=== PATIENT | male | born 1930 | race Caucasian/White ===

== ENCOUNTER 2018-09-23 19:49 | Inpatient (IN) | payer OTHER ==
--- NOTE | 2018-09-23 20:53 | EDPHY ---
H & P Stated Complaint: from [facility] fall, c/o L hip/LLE pain Time Seen by Provider: 09/23/18 20:49 HPI/ROS: CHIEF COMPLAINT: Left hip pain HISTORY OF PRESENT ILLNESS: The patient presents to the ED with complaints of acute left hip pain after a mechanical fall. Patient did not strike his head or lose consciousness. The patient denies any chest pain, back pain or difficulty breathing. The patient is not anticoagulated. The patient's past medical history is significant for paroxysmal atrial fibrillation and stage III renal disease. The patient was brought in by paramedics. The patient complains of acute moderate to severe pain in his left hip which is worsened with attempted movement. The patient is relatively comfortable while at rest. REVIEW OF SYSTEMS: A comprehensive 10 point review of systems is otherwise negative aside from elements mentioned in the history of present illness. Source: Patient, EMS - Personal History Current Tetanus/Diphtheria Vaccine: Yes - Medical/Surgical History Other PMH: Past medical history: Present all atrial fibrillation, chronic renal insufficiency, hypothyroidism, mild dementia, gastroesophageal reflux disease, pacemaker - Family History Significant Family History: No pertinent family hx - Social History Smoking Status: Never smoked Alcohol Use: None - Physical Exam Exam: General Appearance: Elderly male, no acute distress Head: Atraumatic Eyes: Pupils equal, round, reactive ENT, Mouth: No hemotympanum, no oral trauma Neck: Nontender, trachea midline Respiratory: No chest wall tender, no subcutaneous air, lungs clear bilaterally Cardiovascular: Regular rate and rhythm Abdomen: Abdomen is soft and nontender, pelvis stable Skin: No lacerations, No abrasion Back: No midline T/L/S pain Extremities: Tenderness to palpation, shortening and internal rotation noted involving the right hip Neurological: Alert and oriented x1, likely baseline, 5/5 strength noted all 4 extremities Constitutional: Initial Vital Signs Temperature (C) 36.8 C 09/23/18 19:54 Heart Rate 63 09/23/18 19:54 Respiratory Rate 20 09/23/18 19:54 Blood Pressure 100/79 09/23/18 19:54 O2 Sat (%) 93 09/23/18 19:54 O2 Delivery Mode Room Air Allergies/Adverse Reactions: memantine HCl [From Namenda] Allergy (Severe, Verified 03/22/13 14:54) Rash escitalopram oxalate [From Lexapro] Allergy (Intermediate, Verified 03/22/13 14: 54) Diarrhea galantamine HBr [From Razadyne] Allergy (Intermediate, Verified 03/22/13 14:54) Rash lansoprazole [From Prevacid] Allergy (Intermediate, Verified 03/22/13 14:54) Rash HAYFEVER Allergy (Intermediate, Uncoded 03/22/13 14:54) Other-Enter Comments Home Medications: Medication Instructions Recorded Aspirin EC [Aspirin EC 81 mg (*)] 81 mg PO DAILY 09/23/18 Calcium Carbonate/Vitamin D3 1 each PO DAILY 09/23/18 [Calcium 600 + D3 Softgel] Cholecalciferol Vit D3 [Vitamin D3 2,000 units PO DAILY 09/23/18 (*)] Cyanocobalamin (Vitamin B-12) 1,000 mcg PO DAILY 09/23/18 [Vitamin B-12] Levothyroxine [Synthroid 50 mcg 50 mcg PO DAILY06 09/23/18 (*)] Melatonin [Melatonin 5 mg] 5 mg PO HS 09/23/18 Polyethylene Glycol 3350 [Miralax 17 gm PO Q72H 09/23/18 17 gm (*)] Ranitidine HCl 300 mg PO DAILY 09/23/18 Saccharomyces Boulardii [FLORASTOR] 250 mg PO BID 09/23/18 Tamsulosin HCl 0.4 mg PO HS 09/23/18 Triamcinolone 0.5% [Triamcinolone 1 kourtney TP BID PRN 09/23/18 0.5% Cream (*)] Medical Decision Making - Diagnostics EKG Interpretation: EKG: Complete interpretation has been separately recorded in the [employer] [address] archive. Summary impression: Atrial fibrillation, rate 82 Imaging Results: Imaging Impressions Hip X-Ray 09/23/18 20:02 Impression: Acute minimally impacted and angulated left femoral neck fracture. ED Course/Re-evaluation: The patient presents to the ED with complaints of acute left hip pain. The patient's x-ray demonstrates an impacted left femoral neck fracture. The patient is relatively pain-free while at rest. He is neurovascularly intact. While the patient has a history of dementia he has no clinical evidence of an obvious additional injury. Patient had an IV established. He received a L of normal saline. Preoperative labs and EKG have been ordered. I discussed the case with Dr. Alvarado from Orthopedic surgery. The patient will be admitted to the hospital this evening. Consultation was made with Dr. Seth from the hospitalist service. Patient's EKG demonstrates a stable rate controlled AFib without ischemic changes. Differential Diagnosis: Differential diagnosis considered includes anemia, pelvic fracture, hip dislocation, hip fracture, arrhythmia Departure - Departure Disposition: [facility] Inpatient Acute Clinical Impression: Femoral neck fracture, Atrial fibrillation Condition: Fair
[2018-09-23 21:12] LABS: PLATELET COUNT 207 10^3/uL (150-400)
[2018-09-23 21:21] LABS: INR 1.07 (0.83-1.16); PROTIME(PATIENT) 13.5 SEC (12.0-15.0)
--- NOTE | 2018-09-23 21:37 | CPEKG ---
Test Reason : OPEN Blood Pressure : / mmHG Vent. Rate : 082 BPM Atrial Rate : 086 BPM P-R Int : 162 ms QRS Dur : 102 ms QT Int : 369 ms P-R-T Axes : 000 -32 -65 degrees QTc Int : 431 ms Atrial fibrillation Left axis deviation Confirmed by James Kirkland ([id number]) on 09/23/2018 9:36:44 PM Referred By: Rafy Seth Confirmed By:James Kirkland
[2018-09-23] MEDS ORDERED: oxyCODONE IR 5 MG TAB PO PRN (22:14)
[2018-09-23] MEDS ORDERED: ONDANSETRON 4 MG/2 ML VIAL IVP PRN (22:14)
[2018-09-23] MEDS ORDERED: ONDANSETRON DISINTEGRATING 4 MG TAB PO PRN (22:14)
--- NOTE | 2018-09-23 23:38 | PDGENHP ---
History and Physical - Chief Complaint Fall - History of Present Illness 88 yo M w/ hx of AF, CAD, and SSS s/p PPM presents after a fall. The patient fell on his left side. He was brought to the ED after complaining of L hip pain. Per report, there was no LOC or head trauma. He is not anticoagulated for hx of AF. In the ED he was diagnosed with an acute L sided hip fracture. He is being admitted for management of this. During my evaluation the patient is only oriented to self. He is alert but unable to provide much in terms of additional history. His outpatient encounter with Dr. Ortez does mention known "cognitive decline" but I am uncertain of his mental baseline. Case discussed with Dr. Seth; records reviewed and summarized above. History Information - Allergies/Home Medication List Allergies/Adverse Reactions: memantine HCl [From Namenda] Allergy (Severe, Verified 03/22/13 14:54) Rash escitalopram oxalate [From Lexapro] Allergy (Intermediate, Verified 03/22/13 14: 54) Diarrhea galantamine HBr [From Razadyne] Allergy (Intermediate, Verified 03/22/13 14:54) Rash lansoprazole [From Prevacid] Allergy (Intermediate, Verified 03/22/13 14:54) Rash HAYFEVER Allergy (Intermediate, Uncoded 03/22/13 14:54) Other-Enter Comments Home Medications: Aspirin EC [Aspirin EC 81 mg (*)] 81 mg PO DAILY 09/23/18 [Last Taken 09/23/18] Calcium Carbonate/Vitamin D3 [Calcium 600 + D3 Softgel] 1 each PO DAILY [Last Taken 09/23/18] Cholecalciferol Vit D3 [Vitamin D3 (*)] 2,000 units PO DAILY 09/23/18 [Last Taken 09/23/18] Cyanocobalamin (Vitamin B-12) [Vitamin B-12] 1,000 mcg PO DAILY 09/23/18 [Last Taken 09/23/18] Levothyroxine [Synthroid 50 mcg (*)] 50 mcg PO DAILY06 09/23/18 [Last Taken 02/04] Melatonin [Melatonin 5 mg] 5 mg PO HS 09/23/18 [Last Taken 09/22/18] Polyethylene Glycol 3350 [Miralax 17 gm (*)] 17 gm PO Q72H 09/23/18 [Last Taken 09/21/18] Ranitidine HCl 300 mg PO DAILY 09/23/18 [Last Taken 09/23/18] Saccharomyces Boulardii [FLORASTOR] 250 mg PO BID 09/23/18 [Last Taken 09/23/18] Tamsulosin HCl 0.4 mg PO HS 09/23/18 [Last Taken 09/22/18] Triamcinolone 0.5% [Triamcinolone 0.5% Cream (*)] 1 kourtney TP BID PRN 09/23/18 [ Last Taken 09/22/18] I have personally reviewed and updated: family history, medical history - Past Medical History atrial fibrillation, coronary artery disease - Surgical History Reports: pacemaker/AICD - Family History Additional family history: Asked, unable to recall - Social History Smoking Status: Never smoked Alcohol Use: None Review of Systems Review of Systems: Unable to obtain due to confusion Physical Exam Physical Exam: Temp Pulse Resp BP Pulse Ox 36.7 C 80 14 170/81 H 92 09/23/18 22:42 09/23/18 22:42 09/23/18 22:42 09/23/18 22:42 09/23/18 22:42 Constitutional: chronically ill appearing, uncomfortable Eyes: PERRL, EOMI Ears, Nose, Mouth, Throat: moist mucous membranes, no oral mucosal ulcers Cardiovascular: systolic murmur, irregularly irregular Respiratory: no respiratory distress, clear to auscultation Gastrointestinal: normoactive bowel sounds, soft, non-tender abdomen Skin: warm, normal color Musculoskeletal: pain with ROM, muscular tenderness Neurologic: other (A&Ox1), No facial droop Psychiatric: interacting appropriately, not anxious Lab Data & Imaging Review 09/23/18 20:55 09/23/18 20:55 WBC 11.08 10^3/uL (3.80-9.50) H 09/23/18 20:55 RBC 4.07 10^6/uL (4.40-6.38) L 09/23/18 20:55 Hgb 13.4 g/dL (13.7-17.5) L 09/23/18 20:55 Hct 40.7 % (40.0-51.0) 09/23/18 20:55 MCV 100.0 fL (81.5-99.8) H 09/23/18 20:55 MCH 32.9 pg (27.9-34.1) 09/23/18 20:55 MCHC 32.9 g/dL (32.4-36.7) 09/23/18 20:55 RDW 12.6 % (11.5-15.2) 09/23/18 20:55 Plt Count 207 10^3/uL (150-400) 09/23/18 20:55 MPV 11.3 fL (8.7-11.7) 09/23/18 20:55 Neut % (Auto) 83.6 % (39.3-74.2) H 09/23/18 20:55 Lymph % (Auto) 7.4 % (15.0-45.0) L 09/23/18 20:55 [place] % (Auto) 7.2 % (4.5-13.0) 09/23/18 20:55 Eos % (Auto) 1.2 % (0.6-7.6) 09/23/18 20: Baso % (Auto) 0.2 % (0.3-1.7) L 09/23/18 20:55 Nucleat RBC Rel Count 0.0 % (0.0-0.2) 09/23/18 20:55 Absolute Neuts (auto) 9.27 10^3/uL (1.70-6.50) H 09/23/18 20:55 Absolute Lymphs (auto) 0.82 10^3/uL (1.00-3.00) L 09/23/18 20:55 Absolute Monos (auto) 0.80 10^3/uL (0.30-0.80) 09/23/18 20:55 Absolute Eos (auto) 0.13 10^3/uL (0.03-0.40) 09/23/18 20:55 Absolute Basos (auto) 0.02 10^3/uL (0.02-0.10) 09/23/18 20:55 Absolute Nucleated RBC 0.00 10^3/uL (0-0.01) 09/23/18 20:55 Immature Gran % 0.4 % (0.0-1.1) 09/23/18 20:55 Immature Gran # 0.04 10^3/uL (0.00-0.10) 09/23/18 20:55 PT 13.5 SEC (12.0-15.0) 09/23/18 20:55 INR 1.07 (0.83-1.16) 09/23/18 20:55 Sodium 137 mEq/L (135-145) 09/23/18 20:55 Potassium 4.2 mEq/L (3.5-5.2) 09/23/18 20:55 Chloride 106 mEq/L (97-110) 09/23/18 20:55 Carbon Dioxide 23 mEq/l (22-31) 09/23/18 20:55 Anion Gap 8 mEq/L (6-14) 09/23/18 20:55 BUN 31 mg/dL (7-23) H 09/23/18 20:55 Creatinine 0.9 mg/dL (0.7-1.3) 09/23/18 20:55 Estimated GFR > 60 09/23/18 20:55 Glucose 99 mg/dL (70-100) 09/23/18 20:55 Calcium 9.4 mg/dL (8.5-10.4) 09/23/18 20:55 Imaging Review: Imaging Impressions Hip X-Ray 09/23/18 20:02 Impression: Acute minimally impacted and angulated left femoral neck fracture. Visualized and Interpreted EKG results: Yes EKG Interpretation: Positive for: other (Atrial fibrillation) Assessment & Plan Assessment: 88 yo M w/ AF, CAD, and SSS s/p PPM presents with L hip fracture. Plan: 1. Acute L hip fracture - XR (personally reviewed/interpreted) demonstrates minimally impacted and angulated left femoral neck fracture. - Orthopedic surgery (Dr. Alvarado) consulted, will evaluate in the morning - Maintain NPO @ MN - Attempt to limit centrally acting medications noting high delirium risk - This qualifies as a fragility fracture, will need osteoporosis evaluation/ treatment as outpatient 2. Acute v. chronic encephalopathy - I suspect patient has some degree of baseline dementia but I am unaware of his baseline. He is currently A&Ox1 on my evaluation. - Limit centrally acting meds as able - Bed alarm - Delirium precautions 3. AF - Not on anticoagulation or rate control medications for this. - Monitor on telemetry 4. SSS - s/p pacemaker placement, which is seen intermittently on his monitoring and evaluation advisor. 5. CAD - On ASA, no acute chest pain. Diet - NPO @ MN Code - Full, would address this with family/MDPOA as able. Patient is unable to engage in meaningful conversation about this topic tonight. Ppx - SCDs Dispo - Admit under inpatient status
[2018-09-24 05:21] LABS: PLATELET COUNT 208 10^3/uL (150-400)
[2018-09-24] MEDS: ACETAMINOPHEN 500 MG TAB PO SCH ×3 (05:39→22:11)
--- NOTE | 2018-09-24 07:42 | HOSPPROG ---
Hospitalist Progress Note Assessment/Plan: 88 yo M w/ AF, CAD, and SSS s/p PPM presents with L hip fracture. First encounter, chart reviewed. *acute left hip fx, likely osteoporotic -ortho to evaluated, likely to go to OR today *pain due to the above -will order IV pain medications while NPO -avoid narcotics when possible *acute metabolic encephalopathy -due to the above, has underlying dementia *leukocytosis -stress induced *Afib -rate controlled *CAD -asa (on hold for surgery) *hx of SSS w pacer placement *dvt prophylaxis: pumps in place, Lovenox after surgery Subjective: Aleks says 'yes' when asked if in pain. Objective: Vital Signs Temp Pulse Resp BP Pulse Ox 36.8 C 78 18 133/71 H 93 09/24/18 03:10 09/24/18 03:10 09/24/18 03:10 09/24/18 03:10 09/24/18 03:10 Laboratory Results 09/24/18 04:38 09/24/18 04:38 PT 13.5 SEC (12.0-15.0) 09/23/18 20:55 INR 1.07 (0.83-1.16) 09/23/18 20:55 - Physical Exam Constitutional: chronically ill appearing, uncomfortable, No not in pain Ears, Nose, Mouth, Throat: hearing normal Cardiovascular: irregularly irregular, No tachycardia Respiratory: no respiratory distress Gastrointestinal: normoactive bowel sounds Skin: warm Musculoskeletal: muscular tenderness (left hip area) Neurologic: other (alert and answers mainly yes or no when asked questions) Psychiatric: interacting appropriately ICD10 Worksheet Patient Problems: Problems Problem Status Onset Atrial fibrillation Acute Femoral neck fracture Acute Accidental fall Active Clostridium difficile colitis Active
--- NOTE | 2018-09-24 10:37 | ASMTCMCOM ---
CM Note CM Note Notes: Reviewed chart. Pt presented to the Emergency Department with complaints of left hip pain following a fall. He was found to have an acute hip fracture. History includes afib, coronary artery disease, cdiff, and a PPM. The pt was admitted for further evaluation and treatment of his hip fracture,as well as for acute vs chronic encephalopathy. Per MD notes, pt was only oriented x 1 on admit. Today's progress notes indicate pt may have underlying dementia. Ortho to consult. Pt's dghtr is listed as his emergency contact. There are no therapy evals at this time. Discharge needs remain unclear. Anticipate pt would likely benefit from SNF rehab. CM will continue to follow for any potential needs. Discharge Plan: To be determined, likely SNF Date Signed: 09/24/2018 10:36 AM Electronically Signed By:Betty Viveros RN
[2018-09-24] MEDS: NS 1,000 ML IV SCH ×2 (10:59→22:07)
--- NOTE | 2018-09-24 11:25 | PDMN ---
Medical Necessity Medical necessity: [facility] Musculoskeletal Disease: 88 yo w/ L femoral neck fracture (hip) s/p fall. Ortho to consult, likely to OR for repair. NPO, on IV fluids. MC IP only. Hx afib, CAD, pacer, cognitive decline-Pt A&Ox1 only, unsure of baseline.
[2018-09-24] MEDS ORDERED: LR 1,000 ML IV ONE (16:28)
[2018-09-24] MEDS ORDERED: TRANEXAMIC ACID 3,000 MG in NS (SYRINGE) 50 ML IRR ONE (16:38)
[2018-09-24] MEDS ORDERED: ROPIVACAINE 0.2% 80 MG, EPINEPHrine 0.2 MG, KETOROLAC TROMETHAMINE 30 MG, morphINE 10 M... IU ONE (16:38)
[2018-09-24] MEDS ORDERED: ceFAZolin 2 GM/DEXTROSE 100 ML IV ONE (16:38)
--- NOTE | 2018-09-24 16:38 | PDHPUP ---
History & Physical Update H&P update statement: This history and physical update is based on an assessment of the patient which was completed after admission or registration (within 24 hours), but prior to the surgery/procedure. H&P update: H&P reviewed & patient examined, no change in patient's condition since H&P completed
--- NOTE | 2018-09-24 16:51 | PDANEPAE ---
ANE History of Present Illness here for L hip werner-arthroplasty. AF, CAD, SSS S/P PM, dementia, encephalopathy , KARIN ANE Past Medical History - Cardiovascular History Hx Hypertension: Yes Hx Arrhythmias: Yes Hx Chest Pain: No Hx Coronary Artery / Peripheral Vascular Disease: Yes Hx CHF / Valvular Disease: No Hx Palpitations: No Cardiovascular History Comment: AF and SSS s/p PM - Pulmonary History Hx COPD: No Hx Asthma/Reactive Airway Disease: No Hx Recent Upper Respiratory Infection: No Hx Oxygen in Use at Home: No Hx Sleep Apnea: Yes Sleep Apnea Screening Result - Last Documented: Positive - Endocrine History Hx Diabetes: No - Renal History Hx Renal Disorders: No - Liver History Hx Hepatic Disorders: No - Neurological & Psychiatric Hx Hx Neurological and Psychiatric Disorders: No ANE Review of Systems Review of Systems: - Exercise capacity Exercise capacity: <4 METS - Pacemaker Date Pacemaker Last Checked: 03/26/13 ANE Patient History - Allergies Allergies/Adverse Reactions: memantine HCl [From Namenda] Allergy (Severe, Verified 03/22/13 14:54) Rash escitalopram oxalate [From Lexapro] Allergy (Intermediate, Verified 03/22/13 14: 54) Diarrhea galantamine HBr [From Razadyne] Allergy (Intermediate, Verified 03/22/13 14:54) Rash lansoprazole [From Prevacid] Allergy (Intermediate, Verified 03/22/13 14:54) Rash HAYFEVER Allergy (Intermediate, Uncoded 03/22/13 14:54) Other-Enter Comments - Home Medications Home medications: home medication list seen and reviewed Home Medications: Aspirin EC [Aspirin EC 81 mg (*)] 81 mg PO DAILY 09/23/18 [Last Taken 09/23/18] Calcium Carbonate/Vitamin D3 [Calcium 600 + D3 Softgel] 1 each PO DAILY [Last Taken 09/23/18] Cholecalciferol Vit D3 [Vitamin D3 (*)] 2,000 units PO DAILY 09/23/18 [Last Taken 09/23/18] Cyanocobalamin (Vitamin B-12) [Vitamin B-12] 1,000 mcg PO DAILY 09/23/18 [Last Taken 09/23/18] Levothyroxine [Synthroid 50 mcg (*)] 50 mcg PO DAILY06 09/23/18 [Last Taken 02/04] Melatonin [Melatonin 5 mg] 5 mg PO HS 09/23/18 [Last Taken 09/22/18] Polyethylene Glycol 3350 [Miralax 17 gm (*)] 17 gm PO Q72H 09/23/18 [Last Taken 09/21/18] Ranitidine HCl 300 mg PO DAILY 09/23/18 [Last Taken 09/23/18] Saccharomyces Boulardii [FLORASTOR] 250 mg PO BID 09/23/18 [Last Taken 09/23/18] Tamsulosin HCl 0.4 mg PO HS 09/23/18 [Last Taken 09/22/18] Triamcinolone 0.5% [Triamcinolone 0.5% Cream (*)] 1 kourtney TP BID PRN 09/23/18 [ Last Taken 09/22/18] - NPO status NPO Since - Liquids (Date): 09/24/18 NPO Since - Liquids (Time): 00:00 NPO Since - Solids (Date): 09/24/18 NPO Since - Solids (Time): 00:00 - Smoking Hx Smoking Status: Never smoked - Alcohol Use Alcohol Use: None ANE Labs/Vital Signs - Labs Result Diagrams: 09/24/18 04:38 09/24/18 04:38 - Vital Signs Vital Signs: reviewed preoperatively; see RN documention for details Blood Pressure: 100/84 Heart Rate: 66 Respiratory Rate: 14 O2 Sat (%): 85 Height: 170.18 cm Weight: 74.5 kg ANE Physical Exam - Airway Neck exam: FROM Mallampati Score: Class 1 Mouth exam: normal dental/mouth exam - Pulmonary Pulmonary: no respiratory distress - Cardiovascular Cardiovascular: regular rate and rhythym - ASA Status ASA Status: IV ANE Anesthesia Plan Anesthesia Plan: general endotracheal anesthesia (consent via daughter, limited code requested with no CPR, meds and shock only )
[2018-09-24] MEDS ORDERED: LR 1,000 ML IV SCH ×2 (17:00→19:00)
[2018-09-24] MEDS ORDERED: fentaNYL 100 MCG/2 ML INJ ONE ×3 (17:01→19:48)
[2018-09-24] MEDS ORDERED: PROPOFOL 200 MG/20 ML VIAL ONE ×2 (17:02)
[2018-09-24] MEDS ORDERED: PHENYLEPHRINE HCL 100 MCG/ML SYR ONE (17:05)
[2018-09-24] MEDS ORDERED: ePHEDrine SULFATE 25 MG/5 ML SYR ONE (17:05)
[2018-09-24] MEDS ORDERED: SUGAMMADEX SODIUM 200 MG/2 ML VIAL IVP ONE (18:34)
[2018-09-24] MEDS ORDERED: ALBUTEROL 3 ML DEYVIAL IH PRN (18:37)
[2018-09-24] MEDS ORDERED: HYDROmorphONE/DILAUDID 2 MG/ML INJ IVP PRN (18:37)
[2018-09-24] MEDS ORDERED: fentaNYL 100 MCG/2 ML INJ IVP PRN (18:37)
[2018-09-24] MEDS ORDERED: LR 500 ML IV PRN (18:37)
[2018-09-24] MEDS ORDERED: NS 500 ML IV PRN (18:37)
[2018-09-24] MEDS ORDERED: NALOXONE HCL 0.4 MG/ML INJ IVP PRN (18:37)
[2018-09-24] MEDS ORDERED: ONDANSETRON 4 MG/2 ML VIAL IVP PRN (18:37)
--- NOTE | 2018-09-24 18:49 | POSTOPPROG ---
Post Op Note Date of Operation: 09/24/18 Surgeon: Sakina Alvarado Anesthesia: GET(General Endotracheal) Pre-op Diagnosis: l hip fx Procedure: l hip werner-arthroplasty Inf/Abcess present in the surg proc area at time of surgery?: No Depth: Deep Incisional (Fascial) EBL: 100-500
[2018-09-24] MEDS ORDERED: CYCLOBENZAPRINE 10 MG TAB PO PRN (18:50)
[2018-09-24] MEDS ORDERED: POLYETHYLENE GLYCOL 3350 17 GM PKT PO PRN (18:50)
[2018-09-24] MEDS ORDERED: LACTULOSE 20 GM/30 ML UDCUP PO PRN (18:50)
[2018-09-24] MEDS ORDERED: diphenhydrAMINE 25 MG CAP PO PRN (18:50)
[2018-09-24] MEDS ORDERED: BISACODYL 10 MG SUPP PR PRN (18:50)
[2018-09-24] MEDS ORDERED: DIPHENOXYLATE/ATROPINE LOMOTIL 1 TAB PO PRN (18:50)
[2018-09-24] MEDS ORDERED: METOCLOPRAMIDE 10 MG/2 ML VIAL IVP PRN (18:50)
[2018-09-24] MEDS ORDERED: TAPENTADOL HCL 50 MG TAB PO PRN (18:50)
[2018-09-24] MEDS ORDERED: MAGNESIUM HYDROXIDE 30 ML UDCUP PO PRN (18:50)
[2018-09-24] MEDS ORDERED: TEMAZEPAM 15 MG CAP PO PRN (18:50)
--- NOTE | 2018-09-24 19:25 | POSTANESTH ---
Post Anesthetic Evaluation Cardiovascular Status: Normal, Stable Respiratory Status: Normal, Stable Level of Consciousness/Mental Status: Moderately Sleepy Pain Control: Adequate, Prn Tx Ordered Nausea/Vomiting Control: Adequate, Prn Tx Ordered Complications Possibly Related to Anesthesia: None Noted
[2018-09-24] MEDS: SENNOSIDES/DOCUSATE SODIUM TAB PO SCH (23:22)
[2018-09-24] MEDS: FAMOTIDINE 20 MG TAB PO SCH (23:22)
[2018-09-24] MEDS: ASPIRIN 325 MG TAB PO SCH (23:23)
[2018-09-24] MEDS: TAMSULOSIN HCL 0.4 MG CAP PO SCH (23:23)
[2018-09-25] MEDS: KETOROLAC 15 MG/1 ML SDV IVP SCH ×4 (00:24→17:19)
[2018-09-25] MEDS: traMADol 50 MG TAB PO SCH ×4 (00:24→17:19)
[2018-09-25] MEDS: ceFAZolin 2 GM/DEXTROSE 100 ML IV SCH ×2 (00:59→12:46)
[2018-09-25] MEDS: LEVOTHYROXINE 50 MCG TAB PO SCH (05:45)
[2018-09-25] MEDS: ACETAMINOPHEN 500 MG TAB PO SCH ×3 (05:46→22:23)
[2018-09-25 06:05] LABS: PLATELET COUNT 168 10^3/uL (150-400)
--- NOTE | 2018-09-25 06:42 | GOP ---
[f rep st] OPERATIVE REPORT DATE OF OPERATION: 09/24/2018 SURGEON: Sakina Alvarado MD ANESTHESIA: Endotracheal intubation. PREOPERATIVE DIAGNOSIS: Left subcapital hip fracture. POSTOPERATIVE DIAGNOSIS: Left subcapital hip fracture. PROCEDURE PERFORMED: Left hip hemiarthroplasty. FINDINGS: INDICATIONS: This is an 88-year-old male who fell yesterday, was diagnosed with a left hip fracture. He was brought to the operating room as soon as time is available. DESCRIPTION OF PROCEDURE: Patient brought to the operating room. The left side had been identified as the correct side by the patient, nurse, and physician. Once in the operating room, he was placed under general anesthesia using the endotracheal intubation. Once asleep, he was placed in a traction table with well-padded peroneal posts and both legs placed in appropriate leg penny. Fluoroscopy w as used to ensure proper positioning of the pelvis. Once in proper position, the arch table was lock ed into place. The left hip and flank were sterilely prepped and draped in the usual fashion using G SI solution. Once prepped and draped, incision was made starting 2 cm lateral and inferior to the IS and heading in a 15-degree posterior direction, with sharp dissection carried down through the ski n and subcutaneous layers with bleeding controlled using electrocautery. Incision was made directly over the fascia overlying the TFL with the muscle belly retracted laterally. The blunt dissection at the base of the fascial sheath revealed the circumflex vessels which were cauterized. Deeper dissec tion was carried down onto the anterior portion of the femoral capsule. Blunt Cobra retractors place d on the superior and inferior portions of the femoral neck and an anterior acetabular retractor. Th e anterior capsule was removed. An oscillating saw was used to cut across the femoral neck just abov e the intertrochanteric line. The broken portion of the bone removed as well as the head which was r emoved using a corkscrew. Multiple sizes were placed in the acetabulum, noted a 54 head seemed to fi t best. Attention was then turned to the femur after the debris had been removed from the acetabulum . Femur was externally rotated 90 degrees. Capsular dissection was done of the anterior and superio r portion of the femoral neck. Once an adequate release had been performed, the leg was placed in ex tension and abduction with a curette used to remove medullary bone from the proximal femur. Rongeur used to remove the superior portion of the femoral neck. Multiple broaches were used into the canal, noted a size 7 fit best. Trial reduction revealed adequate fill and good length to the femur, there fore the hip was re-dislocated. The trial was removed and a size 7 accolade 2 132 degree neck stem f rom BYOM! was put into place. Noted to trials again were then done to ensure adequate l ength and noted that a +4 head seemed to fit best. Therefore, the hip was re-dislocated, placed in e xtension and adduction. The trunnion was washed and dried and a 26 +4 metal head was put into place and then a 54 x [address] head [address] into place. The hip was able to be relocated, fluoroscopy was ag ain used to ensure proper positioning. Joint cocktail was injected in the posterior capsule, muscle belly of the TFL, the ileal psoas with tranexamic acid irrigated through the wound. The wound was th en closed in layers to include 0 Vicryl suture in a running stitch for the fascial layer of the TFL, 0 Vicryl and 2-0 Vicryl suture for the subcutaneous layers and jonathan for the skin. The wound was d ressed with Xeroform, 4x4, and Tegaderm. He was completely undraped in the operating room. Both leg s were taken out of the appropriate leg holders. Perineal post was removed. Leg lengths were noted to be equal. He was transferred onto a stretcher, woken up, extubated, and sent to recovery room in good condition. /[id number]/MODL
--- NOTE | 2018-09-25 07:22 | GDS ---
[f rep st] DISCHARGE SUMMARY CURRENT COMPLAINT: Left hip pain. HISTORY OF PRESENT ILLNESS: Mr. Hseter is an 88-year-old male, who fell at home. Had pain and defor mity of the hip. He was brought to the emergency room and diagnosed with a subcapital left femur fra cture. I was asked to see the patient for further evaluation. PHYSICAL EXAM: Patient has pain to log roll, but his foot remains neurologically intact. Communicat ion is difficult, secondary to mild dementia. X-ray exam reveals a subcapital left femoral hip fracture. ASSESSMENT: He will be brought to the operating room as soon as time is available for a left hip hem iarthroplasty. /[id number]/MODL
[2018-09-25] MEDS ORDERED: NS 250 ML IV ONE (08:30)
--- NOTE | 2018-09-25 08:31 | HOSPPROG ---
Hospitalist Progress Note Assessment/Plan: 88 yo M w/ AF, CAD, and SSS s/p PPM presents with L hip fracture. *acute left hip fx, likely osteoporotic -s/p left hip arthroplasty *pain due to the above -will order IV pain medications while NPO -avoid narcotics when possible *decrease urine output -will give fluid bolus, change fluids to normal saline *acute metabolic encephalopathy -due to the above, has underlying dementia *leukocytosis -stress induced *Afib -rate controlled *CAD -asa (on hold for surgery) *hx of SSS w pacer placement *dvt prophylaxis: pumps in place, Lovenox Subjective: Aleks mainly answers yes or no when questions asked. Objective: Vital Signs Temp Pulse Resp BP Pulse Ox 36.4 C 72 29 H 121/61 H 96 09/25/18 07:35 09/25/18 07:35 09/25/18 07:35 09/25/18 07:35 09/25/18 07:35 Laboratory Results 09/25/18 05:37 09/25/18 05:37 09/24/18 09/25/18 09/26/18 05:59 05:59 06:59 Intake Total 1844 Output Total 550 Balance 1294 PT 13.5 SEC (12.0-15.0) 09/23/18 20:55 INR 1.07 (0.83-1.16) 09/23/18 20:55 - Physical Exam Constitutional: no apparent distress, chronically ill appearing Ears, Nose, Mouth, Throat: hard of hearing Cardiovascular: irregularly irregular Respiratory: no respiratory distress, reduced air movement Gastrointestinal: normoactive bowel sounds Genitourinary: underwood in urethra Skin: warm, other (left hip w swelling), No normal color (pale) Psychiatric: interacting appropriately, poor memory ICD10 Worksheet Patient Problems: Problems Problem Status Onset Atrial fibrillation Acute Femoral neck fracture Acute Accidental fall Active Clostridium difficile colitis Active
[2018-09-25] MEDS: FAMOTIDINE 20 MG TAB PO SCH ×2 (11:02→22:23)
[2018-09-25] MEDS: ASPIRIN 325 MG TAB PO SCH (11:02)
[2018-09-25] MEDS: CHOLECALCIFEROL VIT D3 2,000 UNITS TAB/CAP PO SCH (11:02)
[2018-09-25] MEDS: SENNOSIDES/DOCUSATE SODIUM TAB PO SCH ×2 (11:02→22:22)
[2018-09-25] MEDS: ENOXAPARIN 40 MG/0.4 ML SYR SC SCH (12:34)
--- NOTE | 2018-09-25 14:35 | SOAPPROG ---
SOAP Progress Note Assessment/Plan: Assessment: Plan: Subjective: states he's not sure whether he has pain but is sitting comfortably in chair dressing C&D with neg pain to gentle log roll of leg difficult to assess neuro in foot secondary to pt uinderstanding cont pain meds and pt Objective: Vital Signs Temp Pulse Resp BP Pulse Ox 36.8 C 71 16 130/88 H 99 09/25/18 11:52 09/25/18 11:52 09/25/18 11:52 09/25/18 11:56 09/25/18 11:52 Laboratory Results 09/25/18 05:37 09/25/18 05:37 09/24/18 09/25/18 09/26/18 05:59 05:59 06:59 Intake Total 1844 Output Total 550 75 Balance 1294 -75 PT 13.5 SEC (12.0-15.0) 09/23/18 20:55 INR 1.07 (0.83-1.16) 09/23/18 20:55 ICD10 Worksheet Patient Problems: Problems Problem Status Onset Atrial fibrillation Acute Femoral neck fracture Acute Accidental fall Active Clostridium difficile colitis Active
[2018-09-25] MEDS ORDERED: NS 500 ML IV ONE (15:01)
[2018-09-25] MEDS: TAMSULOSIN HCL 0.4 MG CAP PO SCH (22:22)
[2018-09-25] MEDS: NS 1,000 ML IV SCH (22:25)
[2018-09-25] MEDS ORDERED: OLANZapine 2.5 MG TAB PO ONE (23:50)
[2018-09-26] MEDS: ACETAMINOPHEN 500 MG TAB PO SCH ×3 (06:55→16:51)
[2018-09-26] MEDS: LEVOTHYROXINE 50 MCG TAB PO SCH (06:56)
[2018-09-26] MEDS: traMADol 50 MG TAB PO SCH ×5 (06:56→23:24)
[2018-09-26] MEDS: NS 1,000 ML IV SCH ×4 (07:38→23:31)
[2018-09-26] MEDS: CHOLECALCIFEROL VIT D3 2,000 UNITS TAB/CAP PO SCH (08:33)
[2018-09-26] MEDS: ENOXAPARIN 40 MG/0.4 ML SYR SC SCH (08:33)
[2018-09-26] MEDS: FAMOTIDINE 20 MG TAB PO SCH ×2 (08:33→21:00)
[2018-09-26] MEDS: ASPIRIN 325 MG TAB PO SCH (08:33)
[2018-09-26] MEDS: SENNOSIDES/DOCUSATE SODIUM TAB PO SCH ×2 (08:33→20:59)
--- NOTE | 2018-09-26 09:42 | ASMTCMCOM ---
CM Note CM Note Notes: Patient chart reviewed. Referrals placed in allscript to SNF facilities. PASSR completed. Spoke with daughter Pamella [phone] . She would prefer her father go to SNF in [place] as her mother lives at [facility]. Pamella states she is looking to move her parents to be closer to family. CM asked she check with surgeon to confirm when her father maybe able to travel. CM to make referrals to local facilities. Plan: TBD likely to SNF Date Signed: 09/26/2018 09:42 AM Electronically Signed By:Cathy Bolaños RN
[2018-09-26] MEDS ORDERED: OLANZapine DISINTEGR 5 MG TAB PO PRN (10:35)
--- NOTE | 2018-09-26 10:38 | HOSPPROG ---
Hospitalist Progress Note Assessment/Plan: 88 yo M w/ AF, CAD, and SSS s/p PPM presents with L hip fracture. *acute left hip fx, likely osteoporotic -s/p left hip arthroplasty *pain due to the above -scheduled Tylenol -avoid narcotics when possible *decrease urine output -was given several bolus of fluids yesterday -will continue normal saline until he starts improving *acute metabolic encephalopathy -pulled Walters out last night -very agitated last night and responded well with Zyprexa (reviewed his care with the night physician) *leukocytosis -stress induced *Afib -rate controlled *CAD -asa (on hold for surgery) *hx of SSS w pacer placement *hx of DVT -not clear when *dvt prophylaxis: pumps in place, Lovenox *plan: place Walters in, patient retaining urine and also need to see if he has enough urine output. Also, met w his , Magdalene, and updated her on his care. Reviewed he gets agitated at night and did well w Zyprexa. Reviewed w her that this has a black box warning. She understands. Subjective: Aleks is smiling today, mainly says yes or no. Objective: Vital Signs Temp Pulse Resp BP Pulse Ox 36.2 C 67 20 126/79 H 97 09/26/18 08:00 09/26/18 08:00 09/26/18 08:00 09/26/18 08:00 09/26/18 08:00 Laboratory Results 09/26/18 04:30 09/26/18 04:30 09/25/18 09/26/18 09/27/18 04:59 05:59 05:59 Intake Total 1930 Output Total Balance 1930 PT 13.5 SEC (12.0-15.0) 09/23/18 20:55 INR 1.07 (0.83-1.16) 09/23/18 20:55 - Physical Exam Constitutional: no apparent distress, chronically ill appearing Eyes: PERRL Ears, Nose, Mouth, Throat: hearing normal Cardiovascular: regular rate and rhythym Respiratory: no respiratory distress Gastrointestinal: normoactive bowel sounds Skin: warm Neurologic: other (alert) Psychiatric: encephalopathic ICD10 Worksheet Patient Problems: Problems Problem Status Onset Atrial fibrillation Acute Femoral neck fracture Acute Accidental fall Active Clostridium difficile colitis Active
--- NOTE | 2018-09-26 17:50 | SOAPPROG ---
SOAP Progress Note Assessment/Plan: Assessment: Plan: Subjective: doesn't answer questions but does not appear to be in pain dressing C&D neg pain to log roll of LLE cont PT Objective: Vital Signs Temp Pulse Resp BP Pulse Ox 36.3 C 79 21 H 123/57 H 95 09/26/18 16:00 09/26/18 16:00 09/26/18 16:00 09/26/18 16:00 09/26/18 16:00 Laboratory Results 09/26/18 04:30 09/26/18 04:30 09/25/18 09/26/18 09/27/18 04:59 05:59 05:59 Intake Total 1931 Output Total Balance 1931 PT 13.5 SEC (12.0-15.0) 09/23/18 20:55 INR 1.07 (0.83-1.16) 09/23/18 20:55 ICD10 Worksheet Patient Problems: Problems Problem Status Onset Atrial fibrillation Acute Femoral neck fracture Acute Accidental fall Active Clostridium difficile colitis Active
[2018-09-26] MEDS: TAMSULOSIN HCL 0.4 MG CAP PO SCH (21:00)
[2018-09-27] MEDS: ACETAMINOPHEN 500 MG TAB PO SCH ×4 (01:58→23:46)
[2018-09-27] MEDS: traMADol 50 MG TAB PO SCH ×4 (06:36→23:30)
[2018-09-27] MEDS: LEVOTHYROXINE 50 MCG TAB PO SCH (06:36)
[2018-09-27] MEDS: ENOXAPARIN 40 MG/0.4 ML SYR SC SCH (09:50)
[2018-09-27] MEDS: CHOLECALCIFEROL VIT D3 2,000 UNITS TAB/CAP PO SCH (09:51)
[2018-09-27] MEDS: ASPIRIN 325 MG TAB PO SCH (09:51)
[2018-09-27] MEDS: FAMOTIDINE 20 MG TAB PO SCH ×2 (09:51→20:05)
[2018-09-27] MEDS: SENNOSIDES/DOCUSATE SODIUM TAB PO SCH ×2 (09:54→20:05)
--- NOTE | 2018-09-27 11:42 | SOAPPROG ---
SOAP Progress Note Assessment/Plan: Assessment: Aleks is s/p left hip hemiarthroplasty on 09/24/18. He is resting comfortably in the room. He is unable to answer questions but does not appear in pain today. PE: No apparent pain with gentle ROM. Calf soft to compression. Plan: Discharge per hospitalist. WBAT LLE. Follow up in 14 days for repeat evaluation and wound check. 09/27/18 11:40 Objective: Vital Signs Temp Pulse Resp BP Pulse Ox 36.5 C 65 18 121/61 H 98 09/27/18 11:26 09/27/18 11:26 09/27/18 11:26 09/27/18 11:26 09/27/18 11:26 Laboratory Results 09/27/18 04:25 09/27/18 04:25 09/26/18 09/27/18 09/28/18 05:59 05:59 05:59 Intake Total 2481 1300 Output Total 1100 Balance 1381 1300 PT 13.5 SEC (12.0-15.0) 09/23/18 20:55 INR 1.07 (0.83-1.16) 09/23/18 20:55 ICD10 Worksheet Patient Problems: Problems Problem Status Onset Atrial fibrillation Acute Femoral neck fracture Acute Accidental fall Active Clostridium difficile colitis Active
[2018-09-27] MEDS: NS 1,000 ML IV SCH (12:24)
[2018-09-27] MEDS ORDERED: NS 1,000 ML IV SCH (14:00)
--- NOTE | 2018-09-27 14:42 | ASMTCMCOM ---
CM Note CM Note Notes: SNF choice is [facility], they are pursuing insurance auth D/c plan of care: [facility] Date Signed: 09/27/2018 02:39 PM Electronically Signed By:CLAUDIA Ritchie
--- NOTE | 2018-09-27 14:47 | ASMTLACE ---
LACE Length of stay for Answers: 3 days current admission Acuity / Level of Answers: Yes Care: Did the patient have an inpatient admission? Comorbidities - select Answers: Coronary Artery Disease all that apply Dementia Moderate or severe liver or renal disease Other Notes: AFib; Hypothyroid # of Emergency department Answers: 1-2 visits in the last 6 months Score: 17 Date Signed: 09/27/2018 02:47 PM Electronically Signed By:CLAUDIA Ritchie
--- NOTE | 2018-09-27 14:48 | HOSPPROG ---
Hospitalist Progress Note Assessment/Plan: 88 yo M w/ AF, CAD, and SSS s/p PPM presents with L hip fracture. First encounter, chart reviewed. *acute left hip fx, likely osteoporotic -s/p left hip arthroplasty *pain due to the above -scheduled Tylenol -avoid narcotics when possible *decrease urine output -was given several bolus of fluids -will continue normal saline -improving *acute metabolic encephalopathy -very agitated at night and responds well with Zyprexa *leukocytosis -stress induced *Afib -rate controlled *CAD -asa (on hold for surgery) *hx of SSS w pacer placement *hx of DVT -not clear when *dvt prophylaxis: pumps in place, Lovenox *plan: Walters, patient retaining urine and also need to see if he has enough urine output. will need SNF awaiting insurance auth Subjective: Confused, no pain. Objective: Vital Signs Temp Pulse Resp BP Pulse Ox 36.5 C 65 18 121/61 H 98 09/27/18 11:26 09/27/18 11:26 09/27/18 11:26 09/27/18 11:26 09/27/18 11:26 Laboratory Results 09/27/18 04:25 09/27/18 04:25 09/26/18 09/27/18 09/28/18 05:59 05:59 05:59 Intake Total 2481 1300 Output Total 1100 Balance 1381 1300 PT 13.5 SEC (12.0-15.0) 09/23/18 20:55 INR 1.07 (0.83-1.16) 09/23/18 20:55 - Physical Exam Constitutional: appears nourished, chronically ill appearing, unkempt Eyes: PERRL, anicteric sclera, EOMI Ears, Nose, Mouth, Throat: moist mucous membranes, hearing normal, ears appear normal Cardiovascular: regular rate and rhythym, No JVD, No edema Respiratory: no respiratory distress, no rales or rhonchi, reduced air movement Gastrointestinal: normoactive bowel sounds, No tenderness, No ascites Skin: warm, normal color, No mottled Musculoskeletal: normal joint ROM, no joint effusions, generalized weakness Neurologic: No AAOx3 Psychiatric: encephalopathic, poor insight, poor memory, No thought process linear ICD10 Worksheet Patient Problems: Problems Problem Status Onset Accidental fall Active Clostridium difficile colitis Active Femoral neck fracture Acute Atrial fibrillation Acute
[2018-09-27] MEDS: TAMSULOSIN HCL 0.4 MG CAP PO SCH (20:13)
[2018-09-28] MEDS: traMADol 50 MG TAB PO SCH ×2 (06:01→12:35)
[2018-09-28] MEDS: LEVOTHYROXINE 50 MCG TAB PO SCH (06:01)
[2018-09-28] MEDS: SENNOSIDES/DOCUSATE SODIUM TAB PO SCH (09:03)
[2018-09-28] MEDS: FAMOTIDINE 20 MG TAB PO SCH (09:03)
[2018-09-28] MEDS: ENOXAPARIN 40 MG/0.4 ML SYR SC SCH (09:04)
[2018-09-28] MEDS: ASPIRIN 325 MG TAB PO SCH (09:04)
[2018-09-28] MEDS: CHOLECALCIFEROL VIT D3 2,000 UNITS TAB/CAP PO SCH (09:05)
--- NOTE | 2018-09-28 09:20 | PDIAF ---
- Diagnosis Diagnosis: hip fx Code Status: Do Not Resuscitate - Medication Management Discharge Medications: electronically signed and located in the Home Medication List. PICC Care - Routine: N/A - Orders Services needed: Registered Nurse, Physical Therapy, Occupational Therapy Diet Recommendation: no restrictions on diet - Follow Up Care Current Providers and Referrals: Rudy Yost MD [Primary Care Provider] - As per Instructions Sakina Alvarado MD [Medical Doctor] -
[2018-09-28 11:26] VITALS: BP 142/72
--- NOTE | 2018-09-28 11:33 | ASMTDCNOTE ---
Case Management Discharge Discharge Order Complete? Answers: Yes Patient to Obtain Answers: Other Notes: [facility] Medications Transportation Arranged Answers: [facility] will Pick (Date 09/28/2018 03:00 PM & Time) EMTALA Complete Answers: No Case Management Transport Answers: No Form Complete Faxed Final Orders Answers: Yes Agency/Facility Transfer Answers: Yes Report Printed & Faxed to Receiving Agency Family Notified Answers: Yes Discharge Comments Notes: Pts case discussed w/ Shania Kaplan NP. Pt is being d/c'd today. DC orders sent. CM called pts daughter Pamella and informed her of the d/c. LILLY Kimbrough will call to give report. CM completed PCS form. CM available for changes. Plan: [facility] Date Signed: 09/28/2018 11:32 AM Electronically Signed By:ZIA Monk
--- NOTE | 2018-09-28 11:36 | ASDISCHSUM ---
Discharge Information Plan Status:SNF Medically Cleared to Leave:09/28/2018 Discharge Date:09/28/2018 CM D/C Disposition: ADT D/C Disposition:[facility] Facility Projected Discharge Date:09/28/2018 11:00 AM Transportation at D/C: Discharge Delay Reason: Follow-Up Date:09/28/2018 11:00 AM Discharge Slot: Final Diagnosis: Placement Information Referral Type:*[facility]/SNF Referral ID:[id number] Provider Name:[facility] Address 1:[address] Address 2: City:[place] Selection Factors: State:[place] Referral Type:*Home Health Care Services Referral ID:[id number] Provider Name:[facility] Address [address] Address 2: City:[place] Selection Factors: State:[place] Patient Contact Information Contact Name:ANNA Relationship:Daughter Address:[address] [phone] City:[facility] Phone: State/Zip Code:[place] [address] Email: Financial Information Financial Class:Medicare Advantage Plans Primary Plan Desc:[employer] Primary Plan Number:[id number] Secondary Plan Desc: Secondary Plan Number: Assessment Information LACE LACE Length of stay for Answers: 3 days current admission Acuity / Level of Answers: Yes Care: Did the patient have an inpatient admission? Comorbidities - select Answers: Coronary Artery Disease all that apply Dementia Moderate or severe liver or renal disease Other Notes: AFib; Hypothyroid # of Emergency department Answers: 1-2 visits in the last 6 months Score: 17 Date Signed: 09/27/2018 02:47 PM Electronically Signed By:CLAUDIA Ritchie [facility] Progress Note CM Note CM Note Notes: Reviewed chart. Pt presented to the Emergency Department with complaints of left hip pain following a fall. He was found to have an acute hip fracture. History includes afib, coronary artery disease, cdiff, and a PPM. The pt was admitted for further evaluation and treatment of his hip fracture,as well as for acute vs chronic encephalopathy. Per MD notes, pt was only oriented x 1 on admit. Today's progress notes indicate pt may have underlying dementia. Ortho to consult. Pt's dghtr is listed as his emergency contact. There are no therapy evals at this time. Discharge needs remain unclear. Anticipate pt would likely benefit from SNF rehab. CM will continue to follow for any potential needs. Discharge Plan: To be determined, likely SNF Date Signed: 09/24/2018 10:36 AM Electronically Signed By:Betty Viveros RN [facility] Progress Note CM Note CM Note Notes: Patient chart reviewed. Referrals placed in allscript to SNF facilities. PASSR completed. Spoke with daughter Pamella [phone] . She would prefer her father go to SNF in [place] as her mother lives at [facility] [place] [place]. Pamella states she is looking to move her parents to be closer to family. CM asked she check with surgeon to confirm when her father maybe able to travel. CM to make referrals to local facilities. Plan: TBD likely to SNF Date Signed: 09/26/2018 09:42 AM Electronically Signed By:Cathy Senkow, RN [facility] Progress Note CM Note CM Note Notes: SNF choice is [facility], they are pursuing insurance auth D/c plan of care: [facility] Date Signed: 09/27/2018 02:39 PM Electronically Signed By:CLAUDIA Ritchie Case Management Discharge Plan Note Case Management Discharge Discharge Order Complete? Answers: Yes Patient to Obtain Answers: Other Notes: [facility] Medications Transportation Arranged Answers: [facility] will Pick (Date 09/28/2018 03:00 PM & Time) MICAH Complete Answers: No Case Management Transport Answers: No Form Complete Faxed Final Orders Answers: Yes Agency/Facility Transfer Answers: Yes Report Printed & Faxed to Receiving Agency Family Notified Answers: Yes Discharge Comments Notes: Pts case discussed w/ Shania Kaplan NP. Pt is being d/c'd today. DC orders sent. CM called pts daughter Pamella and informed her of the d/c. LILLY Kimbrough will call to give report. CM completed PCS form. CM available for changes. Plan: [facility] Date Signed: 09/28/2018 11:32 AM Electronically Signed By:ZIA Monk Intervention Information
[2018-09-28] MEDS: ACETAMINOPHEN 500 MG TAB PO SCH (12:33)
--- NOTE | 2018-09-28 13:31 | GDS ---
[f rep st] DISCHARGE SUMMARY DISCHARGE DIAGNOSES: 1. Left hip fracture. 2. Pain. 3. Urinary retention. 4. Acute metabolic encephalopathy. 5. Leukocytosis. 6. Atrial fibrillation. 7. History of coronary artery disease. CONSULTATIONS: Dr. Alvarado of Orthopedics. STUDIES AND PROCEDURES: Left hip arthroplasty. PHYSICAL EXAM: GENERAL: The patient is alert. VITAL SIGNS: Afebrile at 36.4, pulse 81, respirator y rate is 18, blood pressure is 142/72. Saturating 95% on room air. I have seen evaluated the patie nt on the day of discharge. HOSPITAL COURSE: The patient is an 88-year-old male who presented with hip pain. He was evaluated a nd diagnosed with: 1. Acute left hip fracture. During this hospitalization, he received a consultation from Dr. Alvarado. Hip arthroplasty was performed. The patient is in postop setting requiring further physical therapy and occupational therapy. 2. Pain. This is controlled with Tylenol and supportive medication. We are avoiding narcotics. 3. Urinary retention. A Walters catheter has been placed during this hospitalization. Patient will r equire followup in the outpatient setting with a urologist. 4. Acute metabolic encephalopathy. This is multifactorial. He has responded well to Zyprexa and is at his baseline. 5. Leukocytosis. This is stable. 6. Atrial fibrillation. He is rate controlled. 7. History of coronary artery disease. No signs of complication. DISPOSITION: He will be discharged to [facility] for further rehabilitation and management. PENDING STUDIES: There are no pending studies. DISCHARGE MEDICATIONS: Please refer to EMR form. FOLLOWUP: Will be with Dr. Alvarado, as well as the patient's primary care physician, Dr. Rudy Yost. I spent greater than 35 minutes in the care, coordination, and management of this patient's dispositi on. /[id number]/MODL
== END 2018-09-28 16:01 | DRG 469 ==
LOC: EDUNIT# → F3N 22:45 → F2N 09-24 21:45 → F3N 09-25 15:15
PROVIDERS: ADMIT Internal Medicine; ATTEND Hospitalist
PROC: 0SRS01A Replacement of Left Hip Joint, Femoral Surface with Metal Synthetic Substitute, Uncemented, Open Approach (ICD-10-PCS; principal; 2018-09-24 17:00)
DX: M80.052A Age-related osteoporosis with current pathological fracture, left femur, initial encounter for fracture (principal); W01.0XXA Fall on same level from slipping, tripping and stumbling without subsequent striking against object, initial encounter; Y92.198 Other place in other specified residential institution as the place of occurrence of the external cause; Y99.8 Other external cause status; R33.9 Retention of urine, unspecified; G93.41 Metabolic encephalopathy; F03.90 Unspecified dementia, unspecified severity, without behavioral disturbance, psychotic disturbance, mood disturbance, and anxiety; I12.9 Hypertensive chronic kidney disease with stage 1 through stage 4 chronic kidney disease, or unspecified chronic kidney disease; N18.3 Chronic kidney disease, stage 3 (moderate); I48.0 Paroxysmal atrial fibrillation; Z95.0 Presence of cardiac pacemaker; I25.10 Atherosclerotic heart disease of native coronary artery without angina pectoris; E03.9 Hypothyroidism, unspecified; K21.9 Gastro-esophageal reflux disease without esophagitis
CPT/HCPCS: 92610-GN; 97110-GP; 97162-GP; 97166-GO; 97530-GO; 97530-GP; 97535-GO; J0171; J0690; J1650; J1885; J2270; J2370; J2704; J2795; J3010